=== PATIENT | male | born 1960 | race Caucasian/White ===

== ENCOUNTER 2021-02-05 07:02 | Emergency (ER) | payer SELFPAY ==
[~2021-02-05] VITALS: Ht 165.1 cm; Wt 81.6 kg
[2021-02-05 07:08] VITALS: BP_SYST 153
--- NOTE | 2021-02-05 07:12 | NUR ---
Placed in room 7. Placed on parts salesman, blood pressure machine and pulse oximeter. To gown for exam. Side rails up. Report given to ALE Tolentino.
--- NOTE | 2021-02-05 07:15 | NUR ---
Pt walked in to ER with c/o n/v, dizziness and high blood pressure. States he thinks he has carbon monoxide poisoning. 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 V/S stable, no acute distress noted.
--- NOTE | 2021-02-05 07:19 | NUR ---
ER Dr. Crowe at bedside examining patient.
[2021-02-05] MEDS ORDERED: ONDANSETRON 4 MG ODT TAB PO ONE (07:30)
--- NOTE | 2021-02-05 07:30 | NUR ---
Respiratory at bedside for ABG draw.
--- NOTE | 2021-02-05 07:35 | NUR ---
LAb at bedside for blood draw.
[2021-02-05 07:57] LABS: BASOPHILS # (AUTO) 0.1 K/uL (0.0-0.2); BASOPHILS % (AUTO) 0.6 % (0.0-2.0); EOSINOPHILS # (AUTO) 0.6 K/uL (0.0-0.4); EOSINOPHILS % (AUTO) 6.4 % (0.0-4.0); HEMATOCRIT 39.3 % (36-54); HEMOGLOBIN 13.4 g/dL (14.0-18.0); LYMPHOCYTES # (AUTO) 2.6 K/uL (1.0-5.5); LYMPHOCYTES % (AUTO) 26.6 % (20.5-51.5); MEAN CORPUSCULAR HEMOGLOBIN 29 pg (27-31); MEAN CORPUSCULAR HGB CONC 34 % (32-36); MEAN CORPUSCULAR VOLUME 86 fL (79.0-98.0); MONOCYTES # (AUTO) 0.7 K/uL (0.0-1.0); MONOCYTES % (AUTO) 7.5 % (1.7-9.3); NEUTROPHILS # (AUTO) 5.8 K/uL (1.8-7.7); NEUTROPHILS % (AUTO) 58.9 % (40.0-70.0); PLATELET COUNT (AUTO) 263 K/uL (130-430); RED BLOOD CELL COUNT(AUTO) 4.58 MIL/uL (4.2-6.2); RED CELL DISTRIBUTION WIDTH 13.1 % (9.0-15.0); WHITE BLOOD COUNT (AUTO) 9.9 K/uL (4.8-10.8)
[2021-02-05 08:04] LABS: CALCIUM 8.9 mg/dL (8.4-11.0); CREATININE 1.23 mg/dL (0.55-1.30); POTASSIUM 4.6 mmol/L (3.5-5.1)
--- NOTE | 2021-02-05 08:05 | NUR ---
Radiology at bedside for CXR.
[2021-02-05 08:11] LABS: ALBUMIN 3.2 g/dL (3.4-4.8); TOTAL BILIRUBIN 0.3 mg/dL (0.0-1.0)
[2021-02-05] MEDS ORDERED: MECL-103 PO (08:23)
--- NOTE | 2021-02-05 08:30 | NUR ---
Patient given written and verbal discharge instructions and verbalizes understanding. ER MD discussed with patient the results and treatment provided. Patient in stable condition. ID arm band removed. ow up with PMD. Pain Scale 0. Opportunity for questions provided and answered. Medication side effect fact sheet provided.
[2021-02-05 08:31] VITALS: BP_SYST 153
== END 2021-02-05 08:30 | disposition home or self-care (01) ==
LOC: SED 07:02
DX: R53.1 Weakness (principal); I10 Essential (primary) hypertension; E11.9 Type 2 diabetes mellitus without complications; Z88.0 Allergy status to penicillin; Z88.5 Allergy status to narcotic agent
CPT/HCPCS: 36415; 36600; 71045; 80053; 82550; 82803; 83880; 84484; 85025; 93005; 99285; Q0162